=== PATIENT | male | born 1975 | race African-American/Black ===

== ENCOUNTER 2016-03-14 23:31 | Emergency (ER) | payer OTHER ==
[~2016-03-14] VITALS: Ht 190.5 cm; Wt 79.4 kg
[2016-03-15] MEDS ORDERED: OLANZAPINE 5 MG/TAB.RAPDIS PO ONE (01:30)
[2016-03-15 01:55] LABS: BASOPHILS % (AUTO) 0.1 % (0.0-2.0); DIFF TOTAL % 100 %; EOSINOPHILS % (AUTO) 0.1 % (0.0-6.0); HEMATOCRIT 39 % (39-51); HEMOGLOBIN 12.6 g/dL (13.5-17.5); LYMPHOCYTES # (AUTO) 1.5 /CMM (0.8-4.8); LYMPHOCYTES % (AUTO) 17.7 % (20.0-44.0); MEAN CORPUSCULAR HEMOGLOBIN 28 PG (26.0-33.0); MEAN CORPUSCULAR HGB CONC 32 g/dl (31.0-36.0); MEAN CORPUSCULAR VOLUME 87 fL (80-96); MONOCYTES # (AUTO) 0.7 /CMM (0.1-1.30); MONOCYTES % (AUTO) 8.2 % (2.0-12.0); NEUTROPHILS # (AUTO) 6.3 /CMM (1.8-8.9); NEUTROPHILS % (AUTO) 73.9 % (43.0-81.0); PLATELET COUNT (AUTO) 378 /CMM (150-450); RED BLOOD CELL COUNT(AUTO) 4.51 MIL/uL (4.5-6.0); WHITE BLOOD COUNT (AUTO) 8.5 K/uL (4.3-11.0)
[2016-03-15 02:05] LABS: ALANINE AMINOTRANSFERASE 25 U/L (12-78); ANION GAP 11 (5-14); ASPARTATE AMINOTRANSFERASE 21 U/L (15-37); BILIRUBIN,DIRECT 0.1 mg/dL (0.0-0.2); BILIRUBIN,TOTAL 0.4 mg/dL (0.2-1.0); CALCIUM, SERUM 9.2 mg/dL (8.5-10.1); CARBON DIOXIDE 31 mmol/L (21-32); CHLORIDE 100 mmol/L (98-107); CREATININE 1.1 mg/dL (0.6-1.3); GFR 91 mL/min (>60); GLUCOSE 112 mg/dL (74-106); INDIRECT BILIRUBIN 0.3 mg/dL (0.0-1.1); POTASSIUM 4.2 mmol/L (3.5-5.1); SODIUM SERUM 138 mmol/L (136-145); TOTAL PROTEIN, SERUM 7.9 g/dL (6.4-8.2); UREA NITROGEN, BLOOD 10 mg/dL (7-18)
[2016-03-15 02:06] LABS: SALICYLATE 0.6 mg/dL (2.8-20.0)
[2016-03-15 02:07] LABS: ACETAMINOPHEN 0 ug/ml (10-30)
[2016-03-15] MEDS ORDERED: OLANZAPINE 5 MG TABLET ONE (02:50)
[2016-03-15] MEDS ORDERED: LORAZEPAM 1 MG TABLET ONE (02:51)
[2016-03-15] MEDS ORDERED: LORAZEPAM 1 MG TABLET PO ONE (03:00)
[2016-03-15 07:48] LABS: ADD UA MICROSCOPIC NO; KETONES,URINE NEGATIVE (NEGATIVE); LEUKOCYTE ESTERASE ,URINE NEGATIVE (NEGATIVE); PH,URINE 6.5 (5.0-8.0)
[2016-03-15 08:04] LABS: CANNABINOID, URINE NEGATIVE (NEGATIVE); PHENCYCLIDINE SCREEN,URINE NEGATIVE (NEGATIVE)
[2016-03-15 09:50] VITALS: BP 132/78
== END 2016-03-15 10:48 ==
LOC: ER 23:34
DX: F20.0 Paranoid schizophrenia (principal); I10 Essential (primary) hypertension
CPT/HCPCS: 36415; 80048; 80076; 81001; 85025; 99285; A4606; G0477; G0480; G0481; G0482; Z7610; 81000-TC; G0434; G6038-TC; G6039-TC; G6040-TC

== ENCOUNTER 2016-03-30 12:27 | Emergency (ER) | payer OTHER ==
[~2016-03-30] VITALS: Ht 188 cm; Wt 76.7 kg
[2016-03-30 12:39] VITALS: BP 135/66
== END 2016-03-30 15:26 | disposition left against medical advice (07) ==
LOC: ER 12:28
DX: F22 Delusional disorders (principal); F20.9 Schizophrenia, unspecified; I10 Essential (primary) hypertension
CPT/HCPCS: 99284; A4606; Z7610; Z7502

== ENCOUNTER 2016-10-08 05:30 | Emergency (ER) | payer OTHER ==
[~2016-10-08] VITALS: Ht 177.8 cm; Wt 79.4 kg
--- NOTE | 2016-10-08 05:48 | NUR ---
Called for triage, no answer.
--- NOTE | 2016-10-08 06:03 | NUR ---
Called for triage, not in [facility].
--- NOTE | 2016-10-08 06:05 | NUR ---
To bed 9 a 41 yo male bibself and said, "They're monitoring my feet, causing my feet to blister." x last night, "I think they have some type of NSA monitoring." Patient with hx schizophrenia. VSS. Safety measures in place.
[2016-10-08 06:07] VITALS: BP 104/61
== END 2016-10-08 06:34 | disposition home or self-care (01) ==
LOC: ER 05:35
DX: S90.822A Blister (nonthermal), left foot, initial encounter (principal); S90.821A Blister (nonthermal), right foot, initial encounter; Z59.0 Homelessness; X58.XXXA Exposure to other specified factors, initial encounter; Y92.89 Other specified places as the place of occurrence of the external cause; Y93.89 Activity, other specified; Y99.8 Other external cause status
CPT/HCPCS: 99282; A4606; Z7610